=== PATIENT | male | born 1970 | race African-American/Black ===

== ENCOUNTER 2022-11-21 15:32 | Emergency (ER) | payer MEDICAID, OTHER ==
[~2022-11-21 15:32] MED LIST: AMLO10TA80 PO; ATOR10TA PO; LISI20TA31 PO
[2022-11-21 15:36] VITALS: PULSE 67
== END 2022-11-21 18:06 | disposition left against medical advice (07) ==
LOC: ER 15:32
DX: Z53.21 Procedure and treatment not carried out due to patient leaving prior to being seen by health care provider (principal)